=== PATIENT | male | born 1980 | race American Indian/Alaskan Native ===

== ENCOUNTER 2017-12-09 10:25 | Emergency (ER) | payer SELFPAY ==
[2017-12-09] MEDS ORDERED: VERSED IV ONE (10:36)
[2017-12-09] MEDS ORDERED: NACL 0.9% 1000 ML 1,000 ML IV ONE (11:00)
[2017-12-09] MEDS ORDERED: BOOSTRIX IM ONE (11:01)
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
[2017-12-09] MEDS ORDERED: HALDOL ONE (11:30)
--- NOTE | 2017-12-09 11:52 | Cat Scan Report ---
CT HEAD WITHOUT CONTRAST: HISTORY: Altered mental status. TECHNIQUE: Sequential 2.5mm CT images. COMPARISON: none. FINDINGS: Cerebral Parenchyma: Within normal limits. Cerebellum: Within normal limits. Brainstem: Within normal limits. Ventricles: Normal. Sella: Normal. Extra-axial spaces: Normal. Basal Cisterns: Normal. Intracranial Hemorrhage: None. Midline Shift: None. Calvarium: Normal. Sinuses: There is moderate chronic mucoperiosteal thickening in the sphenoid sinuses. Mild mucosal thickening in the bilateral ethmoid air cells. A 2 cm mucous retention cyst is partially imaged in the left maxillary sinus. Mastoid Air Cells: Normal. Visualized Orbits: Normal. IMPRESSION: No acute intracranial process is identified. Sinus disease as described above, likely chronic.
[2017-12-09] MEDS ORDERED: VERSED IV NR ×2 (12:00→13:00)
[2017-12-09 12:07] LABS: Hematocrit 45.4 % (35.5-45.6); Hemoglobin 15.4 gm/dl (11.8-15.2); Mean Corpuscular HGB Conc 34 % (32-34); Mean Corpuscular Hemoglobin 31 pg (28-32); Mean Corpuscular Volume 92 fl (84-94); Platelet Count 282 K/mm3 (140-440); Red Blood Count 4.93 M/mm3 (3.65-5.03)
[2017-12-09] MEDS ORDERED: HALDOL IM ONE (12:09)
--- NOTE | 2017-12-09 12:18 | XRay Report ---
AP CHEST: HISTORY: Shortness of breath, altered mental status AP view of the chest demonstrates a normal mediastinal and cardiac contour with clear lungs and normal bony and soft tissue structures. IMPRESSION: Unremarkable AP chest.
--- NOTE | 2017-12-09 12:19 | XRay Report ---
RIGHT HAND, 2 views: History: Right hand pain, trauma Limited images secondary to poor patient cooperation. The bony architecture is intact. Bony alignment is normal. No soft tissue abnormalities are seen. The joint spaces appear preserved. IMPRESSION: Limited exam. No abnormality is identified.
[2017-12-09 12:23] LABS: Alanine Aminotransferase 13 units/L (7-56); Albumin 4.5 g/dL (3.9-5); BUN/Creatinine Ratio 9; Blood Urea Nitrogen 11 mg/dL (9-20); Calcium 9.3 mg/dL (8.4-10.2); Hemolysis Index 25
[2017-12-09 12:26] LABS: Bilirubin,Urine NEG (Negative); Blood,Urine SM (Negative); Color,Urine Yellow (Yellow); Hyaline Casts,Urine 1 /LPF; Mucus,Urine 1+ /HPF; Urobilinogen,Urine < 2.0 mg/dL (<2.0)
[2017-12-09 12:35] LABS: Amphetamine Screen,Urine PRESUMPTIVE NEGATIVE; Benzodiazepines Screen,Urine PRESUMPTIVE NEGATIVE; Methadone Screen,Urine PRESUMPTIVE NEGATIVE; Opiate Screen,Urine PRESUMPTIVE NEGATIVE
[2017-12-09 12:44] LABS: INR 1.02 (0.87-1.13)
[2017-12-09 12:55] LABS: Partial Thromboplastin Time TNR Sec. (24.2-36.6)
[2017-12-09] MEDS ORDERED: ANTIBIOTIC OINT TP STA (13:02)
[2017-12-09] MEDS ORDERED: TRIPLE ANTIBIOTIC TP ONE (14:00)
[2017-12-09 14:01] LABS: Cannabinoid Screen,Urine PRESUMPTIVE POSITIVE; Cocaine Screen,Urine PRESUMPTIVE POSITIVE
[2017-12-09 15:08] VITALS: BP 129/74
== END 2017-12-09 15:12 ==
LOC: ED 10:25
DX: S21.139A Puncture wound without foreign body of unspecified front wall of thorax without penetration into thoracic cavity, initial encounter (principal); V49.49XA Driver injured in collision with other motor vehicles in traffic accident, initial encounter; Y93.89 Activity, other specified; Y92.89 Other specified places as the place of occurrence of the external cause; Y99.8 Other external cause status
CPT/HCPCS: 12001; 36415; 70450; 71045; 73120; 80053; 80307; 81001; 82550; 84443; 85027; 85610; 87086; 90471; 90715; 93005; 93010; 96361; 96372; 96374; 96376; 99285; G0480; J1630; J2250; J7030; 80320; A6250

== ENCOUNTER 2018-09-03 07:28 | Outpatient (CLI) | payer OTHER ==
--- NOTE | 2018-09-03 09:06 | Cat Scan Report ---
CT HEAD WITH AND WITHOUT CONTRAST: HISTORY: Elevated prolactin levels. Serial contiguous axial images were obtained through the cranium, both before and after the administration of intravenous contrast material. Comparison is made to the noncontrast CT brain dated 12/09/17. 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 Please correlate with history. The remaining pituitary tissue or sellar tissue appears normal size and contour. There is no obvious abnormal enhancement following IV contrast. No change can be appreciated since 12/09/17. The remaining brain parenchyma demonstrates normal attenuation. Normal griffin-white interface. Normal ventricular size. No evidence for hemorrhage, mass or extra-axial fluid collection. No chronic infarct. IMPRESSION: Surgical changes are identified in the sella probably representing previous transsphenoidal surgical changes. No obvious pituitary abnormality is demonstrated on this exam although MRI with contrast and pituitary protocol is much more sensitive to detect a prolactinoma. No change is appreciated since 12/09/17.
== END 2018-09-03 07:29 | disposition home or self-care (01) ==
LOC: CT 07:28
PROVIDERS: ATTEND Family Medicine
DX: E22.1 Hyperprolactinemia (principal)
CPT/HCPCS: 70470; Q9967

== ENCOUNTER 2020-09-29 15:09 | Emergency (ER) | payer SELFPAY ==
[2020-09-29 15:27] VITALS: BP 148/97
--- NOTE | 2020-09-29 16:52 | Emergency Department Report ---
ED Lower Extremity HPI - General Chief Complaint: Extremity Injury, Lower Stated Complaint: RT FOOT PAIN Time Seen by Provider: 09/29/20 16:15 Source: patient Mode of arrival: Wheelchair Limitations: No Limitations - History of Present Illness Initial Comments: 40 year old male with pmhx of chronic pain/chronic low back pain presents to ED with c/o right foot pain/injury. Patient states 5 days ago he was playing around with his kids outside when he right ankle "rolled" causing him to injure his foot. He states he did not fall. He reports associated swelling, and pain with movement of foot. He states 2 days after injury he went to [facility]. He states that they did an x-ray, but no obvious fracture was noted. He states that he was told he could have a hairline fracture or possible torn ligament. He was Beny wrapped and placed in a postop shoe. He states that he was prescribed Motrin and Tylenol which she has been taking but is not helping the pain. He states that he went to [facility] yesterday for the same right foot pain. He states that they gave him injection, and something oral for pain and a prescription for tramadol and Motrin which she has been taking without relief. He has not made an appointment for the flight control specialist as yet. MD Complaint: foot injury -: days(s) (5) - Related Data Previous Rx's Medication Instructions Recorded Last Taken Type Bacitracin Zinc Oint [Antibiotic 1 applicatio TP BID #1 tube 12/09/17 Unknown Rx Oint] Acetaminophen/Codeine [Tylenol 1 tab PO Q4HR PRN #10 tablet 09/29/20 Unknown Rx /Codeine # 3 tab] Allergies Allergy/AdvReac Type Severity Reaction Status Date / Time Unable to Assess Allergy Unverified 12/09/17 12:05 ED Review of Systems ROS: Stated complaint: RT FOOT PAIN Other details as noted in HPI ED Past Medical Hx - Past Medical History Previous Medical History?: No Additional medical history: unknown - Surgical History Past Surgical History?: No Additional Surgical History: unknown - Social History Smoking Status: Never Smoker Substance Use Type: Alcohol - Medications Home Medications: Home Medications Medication Instructions Recorded Confirmed Last Taken Type Bacitracin Zinc Oint [Antibiotic 1 applicatio TP BID #1 tube 12/09/17 Unknown Rx Oint] Acetaminophen/Codeine [Tylenol 1 tab PO Q4HR PRN #10 tablet 09/29/20 Unknown Rx /Codeine # 3 tab] ED Physical Exam - General Limitations: No Limitations General appearance: alert, in no apparent distress - Head Head exam: Present: atraumatic, normocephalic, normal inspection - Eye Eye exam: Present: normal appearance, PERRL, EOMI Pupils: Present: normal accommodation - ENT ENT exam: Present: normal exam - Neck Neck exam: Present: normal inspection, full ROM - Respiratory Respiratory exam: Present: normal lung sounds bilaterally. Absent: wheezes, rales, rhonchi - Cardiovascular Cardiovascular Exam: Present: regular rate, normal rhythm, normal heart sounds - GI/Abdominal GI/Abdominal exam: Present: soft. Absent: distended, tenderness, guarding - Extremities Exam Extremities exam: Present: normal inspection, normal capillary refill - Expanded Lower Extremity Exam Right Foot/Toe exam: Present: normal inspection, full ROM, tenderness (Mainly to the 4th and 3th mtp joints; ttp is mild ). Absent: swelling, abrasion, laceration, ecchymosis, deformity, crepidus, dislocation, amputation, calcaneal tenderness, tenderness at base of 5th metatarsal, nail avulsion, subungual hematoma Neuro vascular tendon exam: Present: no vascular compromise Gait: Positive: observed and limited by pain (pt using crutches to ambulate; mild limping gait) - Back Exam Back exam: Present: normal inspection - Neurological Exam Neurological exam: Present: alert, oriented X3, CN II-XII intact ED Course Vital Signs 09/29/20 15:24 Temperature 97.9 F Pulse Rate 88 Respiratory 18 Rate Blood Pressure 148/97 O2 Sat by Pulse 98 Oximetry ED Lower Extremity MDM - Radiology Data Radiology results: report reviewed Patient: SONIA ULRICH MR#: [id number] : 1980 Acct:[id number] Age/Sex: 40 / M ADM Date: 09/29/20 Loc: ED Attending Dr: Ordering Physician: TIKA ACOSTA Date of Service: 09/29/20 Procedure(s): XR foot 3+V RT Accession Number(s): [id number] cc: TIKA ACOSTA Fluoro Time In Minutes: Right foot 3 views INDICATION: Injury FINDINGS: Degenerative changes great toe MTP joint with mild surrounding soft tissue swelling. Remaining MTP joints and IP joints appear intact. Calcaneus and talus appear intact. IMPRESSION: Degenerative change of the great toe MTP joint. No acute findings. Signer Name: Adolfo Saldivar MD Signed: 09/29/2020 5:36 PM Workstation Name: [id number] Transcribed By: GREGORY Dictated By: BARBARA SALDIVAR MD Electronically Authenticated By: BARBARA SALDIVAR MD Signed Date/Time: 09/29/201735 DD/ 35 TD/TT: Critical care attestation.: If time is entered above; I have spent that time in minutes in the direct care of this critically ill patient, excluding procedure time. ED Disposition Clinical Impression: Sprain of foot, right Disposition: - TO HOME OR SELFCARE Is pt being admited?: No Does the pt Need Aspirin: No Condition: Stable Instructions: Foot Sprain Additional Instructions: Take the Tylenol threes as prescribed. Continue taking the Motrin as prescribed. Continue wearing a postop shoe and Beny wrap and elevate your foot as often as possible. It is important that you follow-up with the flight control specialist next week. One will be listed on your discharge instructions for follow-up. Return to the ER if your symptoms changes or worsens in any way. Prescriptions: Acetaminophen/Codeine [Tylenol /Codeine # 3 tab] 1 tab PO Q4HR PRN #10 tablet PRN Reason: Pain Referrals: GERARDO COLUNGA MD [Staff Physician] - 3-5 Days Time of Disposition: 17:53
--- NOTE | 2020-09-29 17:41 | XRay Report ---
Right foot 3 views INDICATION: Injury FINDINGS: Degenerative changes great toe MTP joint with mild surrounding soft tissue swelling. Remain ing MTP joints and IP joints appear intact. Calcaneus and talus appear intact. IMPRESSION: Degenerative change of the great toe MTP joint. No acute findings. Signer Name: Adolfo Saldivar MD Signed: 09/29/2020 5:36 PM Workstation Name: [email or web address]
== END 2020-09-29 17:55 | disposition home or self-care (01) ==
LOC: ED 15:09
DX: S93.601A Unspecified sprain of right foot, initial encounter (principal); Z79.899 Other long term (current) drug therapy; X50.1XXA Overexertion from prolonged static or awkward postures, initial encounter; Y93.89 Activity, other specified; Y92.89 Other specified places as the place of occurrence of the external cause; Y99.8 Other external cause status
CPT/HCPCS: 99283

== ENCOUNTER 2020-10-27 07:20 | Emergency (ER) | payer SELFPAY ==
[2020-10-27 07:28] VITALS: BP 174/114
== END 2020-10-27 08:00 | disposition left against medical advice (07) ==
LOC: ED 07:20
DX: M25.541 Pain in joints of right hand (principal); M54.6 Pain in thoracic spine; M79.671 Pain in right foot; Z53.21 Procedure and treatment not carried out due to patient leaving prior to being seen by health care provider

== ENCOUNTER 2021-06-21 09:11 | Emergency (ER) | payer SELFPAY ==
[2021-06-21 11:44] VITALS: BP 156/114
[2021-06-21] MEDS ORDERED: oxyCODONE /ACETAMINOPHEN 5-325MG TAB PO ONE (11:51)
--- NOTE | 2021-06-21 11:51 | Emergency Department Report ---
ED General Adult HPI - General Chief complaint: Chest Pain Stated complaint: right sciatic pain with leg swelling/CP Time Seen by Provider: 06/21/21 11:41 Source: patient Mode of arrival: Ambulatory Limitations: No Limitations - History of Present Illness Initial comments: Chief complaint: I need Percocet or Ativan. HPI: This is a 40-year-old male with a history of severe anxiety and sciatica who presents with right leg pain. Patient also has severe anxiety. Outside hospitals have given him Percocet and Ativan in the past. He has history of chronic back pain and sciatica. History of anxiety. He takes lithium. He denies new injury. He denies leg weakness. Denies bowel bladder incontinence. He denies chest pain although endorsed in triage. -: year(s) (Chronic back pain history of anxiety disorder) Severity scale (0 -10): 7 Consistency: constant Improves with: none Worsens with: none Associated Symptoms: denies other symptoms - Related Data Previous Rx's Medication Instructions Recorded Last Taken Type Bacitracin Zinc Oint [Antibiotic 1 applicatio TP BID #1 tube 12/09/17 Unknown Rx Oint] Acetaminophen/Codeine [Tylenol 1 tab PO Q4HR PRN #10 tablet 09/29/20 Unknown Rx /Codeine # 3 tab] Allergies Allergy/AdvReac Type Severity Reaction Status Date / Time No Known Allergies Allergy Verified 06/21/21 09:18 ED Review of Systems ROS: Stated complaint: right sciatic pain with leg swelling/CP Other details as noted in HPI Comment: All other systems reviewed and negative Constitutional: denies: fever, malaise Respiratory: denies: cough, shortness of breath Cardiovascular: denies: chest pain Neurological: denies: numbness, paresthesias ED Past Medical Hx - Past Medical History Previous Medical History?: Yes Hx Psychiatric Treatment: Yes (Anxiety disorder) Additional medical history: pituitary tumor-removed - Surgical History Past Surgical History?: Yes Additional Surgical History: brain aneurysm in 2017 - Social History Smoking Status: Never Smoker Substance Use Type: Alcohol - Medications Home Medications: Home Medications Medication Instructions Recorded Confirmed Last Taken Type Bacitracin Zinc Oint [Antibiotic 1 applicatio TP BID #1 tube 12/09/17 Unknown Rx Oint] Acetaminophen/Codeine [Tylenol 1 tab PO Q4HR PRN #10 tablet 09/29/20 Unknown Rx /Codeine # 3 tab] ED Physical Exam - General Limitations: No Limitations General appearance: alert, in no apparent distress - Head Head exam: Present: atraumatic, normocephalic - Eye Eye exam: Present: normal appearance - ENT ENT exam: Present: mucous membranes moist - Neck Neck exam: Present: normal inspection, full ROM - Respiratory Respiratory exam: Present: normal lung sounds bilaterally. Absent: respiratory distress - Cardiovascular Cardiovascular Exam: Present: regular rate, normal rhythm, normal heart sounds. Absent: systolic murmur, diastolic murmur, rubs, gallop - GI/Abdominal GI/Abdominal exam: Present: soft, normal bowel sounds. Absent: distended, tenderness, guarding, rebound - Rectal Rectal exam: Present: deferred - Extremities Exam Extremities exam: Present: normal inspection - Neurological Exam Neurological exam: Present: alert, oriented X3 - Psychiatric Psychiatric exam: Present: normal affect, normal mood - Skin Skin exam: Present: warm, dry, intact, normal color. Absent: rash ED Course Vital Signs 06/21/21 06/21/21 11:42 11:44 Temperature 98.2 F Pulse Rate 100 H Respiratory 20 Rate Blood Pressure 156/114 [Right] O2 Sat by Pulse 100 100 Oximetry ED Medical Decision Making - Medical Decision Making Chronic back pain, anxiety: No acute issues; patient desired Percocet dose and referral to a physician. Patient received 1 tablet Percocet in emergency department referral to internal medicine physician. Critical care attestation.: If time is entered above; I have spent that time in minutes in the direct care of this critically ill patient, excluding procedure time. ED Disposition Clinical Impression: Sciatica, Anxiety Disposition: 01 HOME / SELF CARE / HOMELESS Is pt being admited?: No Does the pt Need Aspirin: No Condition: Stable Instructions: Sciatica, Managing Anxiety, Adult Referrals: ELIZABETH OLIVAS MD [Staff Physician] - 3-5 Days
== END 2021-06-21 12:12 | disposition home or self-care (01) ==
LOC: ED 09:11
DX: M54.31 Sciatica, right side (principal); F41.9 Anxiety disorder, unspecified
CPT/HCPCS: 99282